=== PATIENT | female | born 1950 | race African-American/Black ===

== ENCOUNTER 2020-07-17 18:22 | Inpatient (IN) | payer MEDICARE ==
[~2020-07-17] VITALS: Ht 167.6 cm; Wt 73.5 kg
--- NOTE | 2020-07-17 18:51 | NUR ---
RN NOTES RECEIVED PT VIA GURNEY BROUGHT BY OD GRINDER OPERATOR FROM [facility]. REPORT GIVEN BY DORIAN/RN VIA PHONE. PT AWAKE, A/O X3, TOLERATING RA,WITH NO ACUTE RESPIRATORY DISTRESS. PT DENIES PAIN OR DISCOMFORT AT THIS TIME. VS TAKEN AND RECORDED. CONRABAND TAKEN AND KEPT BELONGINGS IN THE SAFE. PT DENIES ANY ALLERGIES TO MEDICATIONS AND FOOD. PT KEPT COMFORTABLE IN BED. WILL ENDORSE ADMISSION TO NEXT SHIFT NURSE. Addendum: 07/17/20 at [address] DAY RN Dr. Barnhart made aware of the admission and with orders.
[2020-07-17 18:57] VITALS: BP 118/77
[2020-07-17] MEDS ORDERED: ACETAMINOPHEN 325 MG TABLET PO PRN (19:00)
[2020-07-17] MEDS ORDERED: BLOOD SUGAR DIAGNOSTIC 1 EACH STRIP IN ONE (19:00)
[2020-07-17] MEDS ORDERED: LORAZEPAM 0.5 MG TABLET PO PRN (19:00)
[2020-07-17] MEDS ORDERED: MAGNESIUM HYDROXIDE 30 ML UDC PO PRN (19:00)
[2020-07-17] MEDS ORDERED: MAG HYDROX/AL HYDROX/SIMETH 30 ML UDC PO PRN (19:00)
[2020-07-17 20:20] VITALS: BP 127/70
[2020-07-17] MEDS ORDERED: RISP3TAB14 PO (20:52)
[2020-07-17] MEDS ORDERED: DIVA500T54 PO (20:52)
[2020-07-17] MEDS ORDERED: OLAN10TA3 PO (20:52)
--- NOTE | 2020-07-17 21:00 | NUR ---
GPS RN NOTE RECEIVED PT IN ROOM EATING, PT IS A/O X3, SLIGHTLY GARBLED SPEECH, ISOLATIVE, UNKEPT APPEARANCE, PT DENIES SI/HI, DENIES FEELINGS OF HOPELESSNESS OR DEPRESSION, PT DENIES ANY MEDICAL HISTORY SHE STATED "I JUST HAVE PSYCHIATRIC HISTORY", COOPERATIVE. PT STATES SHE HEARS VOICES BUT THEY JUST SING TO HER, ITS MOSTLY LIKE HEARING MUSIC PER PT WORDS, SKIN ASSESSMENT WAS DONE, SKIN IS INTACT JUST VERY DRY. PT IS ON A 5150 DUE TO GD, PT WAS UNABLE TO RECOLLECT WHAT DAY AND YEAR IT WAS, SHE HAS NOT BEEN TAKING ANTIPSYCHOTICS THAT LAST 10-15 DAYS AND WAS FOUND IN frents LOITERING AND SETTING UP CAMP PER HOLD. PT DENIES HAVING ANY FAMILY TO NOTIFY, WILL CONTINUE TO MONITOR Q15 MIN FOR SAFETY AND BEHAVIOR.
[2020-07-18] MEDS: CLONIDINE HCL 0.1 MG TABLET PO SCH ×3 (05:00→21:00)
--- NOTE | 2020-07-18 05:49 | NUR ---
GPS RN NOTE: REFUSED MED PT REFUSED SCHEDULED CLONODINE HCL 0.1 MG AND REFUSED TO LET ME CHECK VITALS, PT STATED "I DONT WANT TO, PLEASE GET OUT". WILL PASS IT ON AND CONTINUE TO MONITOR Q15MIN FOR SAFETY AND BEHAVIOR.
[2020-07-18 07:19] LABS: CHOLESTEROL 147 mg/dL (<200); HDL CHOLESTEROL 51 mg/dL (40-60); LDL 85 mg/dL (0-99); TRIGLYCERIDES 36 mg/dL (30-150)
[2020-07-18 07:23] LABS: ALANINE AMINOTRANSFERASE 29 U/L (12-78); ALBUMIN 2.8 g/dL (3.4-5.0); ALKALINE PHOSPHATASE 40 U/L (46-116); ASPARTATE AMINOTRANSFERASE 25 U/L (15-37); BILIRUBIN,TOTAL 0.2 mg/dL (0.2-1.0); CALCIUM, SERUM 8.8 mg/dL (8.5-10.1); CARBON DIOXIDE 26 mmol/L (21-32); CHLORIDE 107 mmol/L (98-107); CREATININE 0.8 mg/dL (0.6-1.3); GLUCOSE 97 mg/dL (74-106); POTASSIUM 4.5 mmol/L (3.5-5.1); SODIUM SERUM 141 mmol/L (136-145); TOTAL PROTEIN, SERUM 7.3 g/dL (6.4-8.2); UREA NITROGEN, BLOOD 23 mg/dL (7-18)
[2020-07-18 08:00] VITALS: BP 116/73
[2020-07-18] MEDS: NICOTINE PATCH (14MG) 14 MG PATCH.TD24 TD SCH (08:46)
--- NOTE | 2020-07-18 09:00 | NUR ---
RN NOTE- PT ALERT CALM INTERACTIVE DENYING AH AT PRESENT THOUGH STATES AT TIMES 'I HEAR THINGS' BLUNTED AFFECT, ASKING FOR ICE CREAM AND SNACKS A BIT SLOW TO RESPOND AT TIMES. MED COMPLIANT NO BEHAVIORAL ISSUES
--- NOTE | 2020-07-18 10:20 | NUR ---
INITIAL DISCHARGE PLAN: Pt is homeless and due to her current mental and cognitive state pt needs SNF placement. SW will help form a safe and proper discharge in collaboration with .
--- NOTE | 2020-07-18 13:00 | NUR ---
RN NOTE- ALERT ORIENTED PERSON PLACE TIME. A BIT CONFUSED PO INTAKE FAIR DENIES SI HI AH VH FLAT AFFECT DIRECTABLE
[2020-07-18] MEDS: risperiDONE 1 MG TABLET PO SCH ×2 (13:48→21:00)
[2020-07-18] MEDS: BENZTROPINE MESYLATE (1 MG) 1 MG TABLET PO SCH ×2 (13:48→21:00)
--- NOTE | 2020-07-18 13:49 | NUR ---
GROUP THERAPY: SW encouraged pt to attend group therapy, pt was asleep and not easily roused by verbal cues.
[2020-07-18 16:00] VITALS: BP 106/54
[2020-07-18 20:06] VITALS: BP 126/58
--- NOTE | 2020-07-18 21:16 | NUR ---
NURSES NOTES: PATIENT REFUSD HER NIGHT MEDS ON SCHEDULE. RISPERDAL, CLONIDINE AND COGENTIN TABLES. PER PATIENT " I DON'T TAKE IT AT NIGHT, NO THANK YOU." INSURANCE PROFESSIONAL EXPLAINED THAT SHE TOOK HER MORNING MEDS AND THAT IT IS JUST RIGHT SHE COMPLY WITH NIGHT MEDS WELL. PATIENT STILL REFUSED. BENEFITS AND RISKS EXPLAINED. WILL INFORM DAY SHIFT NURSE. WILL RELAY TO MD.
[2020-07-19] MEDS: CLONIDINE HCL 0.1 MG TABLET PO SCH ×3 (05:00→20:48)
--- NOTE | 2020-07-19 06:14 | NUR ---
NURSES NOTES: PATIENT HAS A SCHEDULED MEDICATION OF CLONIDINE BP RECHECKED HOWEVER PATIENT REFUSED TO TKA E THE MEDICATION. MOLECULAR GENETIC PATHOLOGIST EXPLAINED RISKS AND BENEFITS OF THE SAID MEDICATION. WILL CONTINUE TO MONITOR.
[2020-07-19 08:00] VITALS: BP 143/88
--- NOTE | 2020-07-19 08:40 | NUR ---
WITH ENCOURAGEMENT TOOK MORNING MEDS.
[2020-07-19] MEDS: BENZTROPINE MESYLATE (1 MG) 1 MG TABLET PO SCH ×2 (08:53→20:47)
[2020-07-19] MEDS: risperiDONE 1 MG TABLET PO SCH ×2 (08:54→20:47)
[2020-07-19] MEDS: NICOTINE PATCH (14MG) 14 MG PATCH.TD24 TD SCH (08:54)
--- NOTE | 2020-07-19 13:24 | NUR ---
GIVEN MOM C/CONSTIPATION X 3 DAYS. Addendum: 07/19/20 at 1411 by KODAK ARMENDARIZ RN ABOVE NOTE ON INCORRECT PT.
[2020-07-19 16:00] VITALS: BP 128/50
--- NOTE | 2020-07-19 18:31 | NUR ---
COOPERATIVE,COMPLIANT AND PLEASANT.
[2020-07-19 20:05] VITALS: BP 136/90
[2020-07-20] MEDS: CLONIDINE HCL 0.1 MG TABLET PO SCH ×3 (05:00→20:59)
--- NOTE | 2020-07-20 05:05 | NUR ---
NURSES NOTES: REFUSAL MEDICATION PATIENT HAS A SCHEDULED MEDICATION OF CLONIDINE , PATIENT REFUSED TO TAKE E THE MEDICATION. ENCOURAGED X3 , EXPLAINED RISKS AND BENEFITS OF THE SAID MEDICATION. WILL CONTINUE TO MONITOR.
--- NOTE | 2020-07-20 06:48 | NUR ---
GPS RN NOTES: PT. RESTING IN HER ROOM, CALM NOTED AT THIS TIME . NO S/S OF DISTRESS NOTED . PT. CALM COOPERTIVE,NO CHANGE OF CONDITION NOTED ,AND NO BEHAVIOR PROBLEMS NOTED, ALL CARE NEEDS MET ANTICIPATED. WILL CONTINUE TO MONITOR FOR SAFETY BEHAVIOR, AND ENDORSE TO AM SHIFT FOR CONTINUITY OF CARE.
[2020-07-20 08:00] VITALS: BP 121/76
[2020-07-20] MEDS: BENZTROPINE MESYLATE (1 MG) 1 MG TABLET PO SCH ×2 (08:19→20:59)
[2020-07-20] MEDS: risperiDONE 1 MG TABLET PO SCH ×2 (08:19→21:00)
[2020-07-20] MEDS: NICOTINE PATCH (14MG) 14 MG PATCH.TD24 TD SCH (08:24)
--- NOTE | 2020-07-20 12:45 | NUR ---
RN-CO: PATIENT REFUSED CATAPRES , BP IS 111/69. SHE STATED " I DON'T NEED IT."
[2020-07-20 16:00] VITALS: BP 126/56
[2020-07-20 20:37] VITALS: BP 133/83
[2020-07-21] MEDS: CLONIDINE HCL 0.1 MG TABLET PO SCH ×3 (05:00→21:20)
--- NOTE | 2020-07-21 05:09 | NUR ---
Pt refused med catapress @0500. BP 109/58. Pt states, " my BP is ok, i don't need it". Charge nurse aware.
[2020-07-21 08:00] VITALS: BP 106/71
[2020-07-21] MEDS: NICOTINE PATCH (14MG) 14 MG PATCH.TD24 TD SCH (08:45)
[2020-07-21] MEDS: risperiDONE 1 MG TABLET PO SCH ×2 (08:45→21:20)
[2020-07-21] MEDS: BENZTROPINE MESYLATE (1 MG) 1 MG TABLET PO SCH ×2 (08:45→21:20)
[2020-07-21 16:00] VITALS: BP 106/75
[2020-07-21 19:36] VITALS: BP 125/79
[2020-07-21] MEDS: TEMAZEPAM 7.5 MG CAPSULE PO PRN (21:20)
[2020-07-22] MEDS: CLONIDINE HCL 0.1 MG TABLET PO SCH ×3 (06:45→21:00)
[2020-07-22 08:16] VITALS: BP 131/94
[2020-07-22] MEDS: risperiDONE 1 MG TABLET PO SCH ×2 (08:18→21:38)
[2020-07-22] MEDS: NICOTINE PATCH (14MG) 14 MG PATCH.TD24 TD SCH (08:20)
[2020-07-22] MEDS: BENZTROPINE MESYLATE (1 MG) 1 MG TABLET PO SCH ×2 (08:20→21:37)
--- NOTE | 2020-07-22 13:32 | NUR ---
COORDINATION OF CARE: DEJON faxed patient's referral packet to [facility] ([phone]) attention to Assistant Store Director Glenny for review and possible placement.
[2020-07-22 16:00] VITALS: BP 101/63
[2020-07-22 19:32] VITALS: BP 114/71
--- NOTE | 2020-07-22 21:41 | NUR ---
GPS RN NOTES: 2100 CLONIDINE 0.1MG 1TAB NOT ADMINISTERED D/T DECREASED BLOOD PRESSURE.
[2020-07-23] MEDS: CLONIDINE HCL 0.1 MG TABLET PO SCH ×3 (05:00→21:25)
--- NOTE | 2020-07-23 06:32 | NUR ---
GPS RN CLOSING NOTES: PT SLEEPING COMFORTABLY IN BED. MED COMPLIANT THIS SHIFT. SLEPT FOR 7 HR. NO BEHAVIORAL ISSUES THIS SHIFT. NO S/S OF DISTRESS AT THIS TIME. RESPIRATION EVEN AND UNLABORED WITH EQUAL RISE AND FALL OF THE CHEST ON ROOM AIR. ALL PATIENT CARE NEEDS MET ANTICIPATED. WILL CONTINUE TO MONITOR AND ENDORSE TO AM SHIFT.
[2020-07-23 08:00] VITALS: BP 109/70
[2020-07-23] MEDS: BENZTROPINE MESYLATE (1 MG) 1 MG TABLET PO SCH ×2 (08:21→21:24)
[2020-07-23] MEDS: NICOTINE PATCH (14MG) 14 MG PATCH.TD24 TD SCH (08:22)
[2020-07-23] MEDS ORDERED: risperiDONE 1 MG TABLET PO SCH (09:00)
[2020-07-23] MEDS: risperiDONE 1 MG TABLET PO SCH ×2 (12:20→21:24)
[2020-07-23 16:00] VITALS: BP 113/59
[2020-07-23 20:11] VITALS: BP 117/75
[2020-07-24] MEDS: CLONIDINE HCL 0.1 MG TABLET PO SCH ×3 (05:48→21:05)
[2020-07-24 08:00] VITALS: BP 110/64
[2020-07-24] MEDS: risperiDONE 1 MG TABLET PO SCH ×3 (08:17→21:04)
[2020-07-24] MEDS: BENZTROPINE MESYLATE (1 MG) 1 MG TABLET PO SCH ×2 (08:17→21:04)
[2020-07-24] MEDS: NICOTINE PATCH (14MG) 14 MG PATCH.TD24 TD SCH (08:44)
[2020-07-24 16:00] VITALS: BP 139/82
[2020-07-24 19:39] VITALS: BP 148/80
[2020-07-25] MEDS: TEMAZEPAM 7.5 MG CAPSULE PO PRN (00:56)
--- NOTE | 2020-07-25 00:56 | NUR ---
GPS-RN NOTE: INSOMNIA PATIENT C/O INABILITY TO SLEEP. ADMINISTERED RESTORIL 7.5MG PO ORDERED. WILL CONTINUE TO MONITOR.
[2020-07-25] MEDS: CLONIDINE HCL 0.1 MG TABLET PO SCH ×3 (05:45→21:34)
[2020-07-25 08:00] VITALS: BP 130/79
[2020-07-25] MEDS: BENZTROPINE MESYLATE (1 MG) 1 MG TABLET PO SCH ×2 (08:50→21:34)
[2020-07-25] MEDS: NICOTINE PATCH (14MG) 14 MG PATCH.TD24 TD SCH (08:50)
[2020-07-25] MEDS: risperiDONE 1 MG TABLET PO SCH ×3 (08:50→21:34)
[2020-07-25 16:00] VITALS: BP 149/83
[2020-07-25 19:52] VITALS: BP 137/86
[2020-07-26] MEDS: CLONIDINE HCL 0.1 MG TABLET PO SCH ×3 (05:38→20:47)
--- NOTE | 2020-07-26 06:39 | NUR ---
GPS RN CLOSING NOTES: PT AWAKE, A/O X3, LAYING ON BED. NO BEHAVIORAL ISSUES THIS SHIFT. MED COMPLIANT. SLEPT 8HR THIS SHIFT. NO S/S OF DISTRESS. RESPIRATION EVEN AND UNLABORED WITH EQUAL RISE AND FALL OF THE SHIFT ON ROOM AIR. ALL PT CARE NEEDS MET ANTICIPATED. WILL CONTINUE TO MONITOR AND ENDORSE TO AM SHIFT.
[2020-07-26] MEDS: NICOTINE PATCH (14MG) 14 MG PATCH.TD24 TD SCH (07:50)
[2020-07-26] MEDS: risperiDONE 1 MG TABLET PO SCH ×3 (07:52→21:02)
[2020-07-26] MEDS: BENZTROPINE MESYLATE (1 MG) 1 MG TABLET PO SCH ×2 (07:52→20:47)
[2020-07-26 08:00] VITALS: BP 110/66
[2020-07-26 16:00] VITALS: BP 111/70
[2020-07-26 20:39] VITALS: BP 142/102
[2020-07-27] MEDS: CLONIDINE HCL 0.1 MG TABLET PO SCH ×3 (04:57→21:41)
[2020-07-27] MEDS: NICOTINE PATCH (14MG) 14 MG PATCH.TD24 TD SCH (07:51)
[2020-07-27] MEDS: BENZTROPINE MESYLATE (1 MG) 1 MG TABLET PO SCH ×2 (07:51→21:42)
[2020-07-27] MEDS: risperiDONE 1 MG TABLET PO SCH ×3 (07:51→21:42)
[2020-07-27 08:00] VITALS: BP 119/77
[2020-07-27 16:00] VITALS: BP 124/74
[2020-07-27 20:04] VITALS: BP 133/78
--- NOTE | 2020-07-27 21:44 | NUR ---
Pt c/o indigestion. Maalox 30 ml po prn given as ordered. Will continue to monitor.
--- NOTE | 2020-07-27 22:46 | NUR ---
Post 1 hour Maalox effective. Indigestion relieved. Will continue to monitor.
[2020-07-28 08:00] VITALS: BP 154/90
[2020-07-28] MEDS: risperiDONE 1 MG TABLET PO SCH ×3 (08:29→21:51)
[2020-07-28] MEDS: BENZTROPINE MESYLATE (1 MG) 1 MG TABLET PO SCH ×2 (08:29→20:33)
[2020-07-28] MEDS: NICOTINE PATCH (14MG) 14 MG PATCH.TD24 TD SCH (08:29)
[2020-07-28] MEDS: CLONIDINE HCL 0.1 MG TABLET PO SCH ×2 (13:00→20:32)
[2020-07-28 16:00] VITALS: BP 129/89
[2020-07-28 20:29] VITALS: BP 135/85
[2020-07-29] MEDS: CLONIDINE HCL 0.1 MG TABLET PO SCH ×2 (05:00→13:00)
[2020-07-29 08:00] VITALS: BP 106/71
[2020-07-29] MEDS: NICOTINE PATCH (14MG) 14 MG PATCH.TD24 TD SCH (10:19)
[2020-07-29] MEDS: risperiDONE 1 MG TABLET PO SCH ×2 (10:19→14:11)
[2020-07-29] MEDS: BENZTROPINE MESYLATE (1 MG) 1 MG TABLET PO SCH (10:19)
--- NOTE | 2020-07-29 13:38 | NUR ---
DISCHARGE NOTE: Pt will be discharged at 4:00pm via AM [facility] ([facility]) [address] [address] [address] P: [phone]. Pt has no family/ friends to notify. Pts mood is euthymic with congruent affect. Pt denied visual/auditory hallucinations. Pt is alert and oriented x2 and is ambulatory and appears appropriately dressed. Pt will follow up with Psychiatrist: Dr. Alexandria Barnhart [address] [place] [address] [address], [place] [address] and Fire Prevention Captain: Dr Singh Address: [address] [place] [address] [address], [place] [address] . Pt was provided with homeless resources. Pt was unable to sign homeless waiver and choice of vendors due to cognitive impairment. The multidisciplinary exit care form was done, printed, signed, and given to the patient.
[2020-07-29 16:00] VITALS: BP 108/61
--- NOTE | 2020-07-29 18:34 | NUR ---
making plans for dc,deniess/i and h/i.covid test negative.report called to jenifer at facility.
[2020-07-29 20:15] VITALS: BP 113/61
--- NOTE | 2020-07-29 20:30 | NUR ---
GPS RN NOTE: PT. D/C AT 2029 BY 3 EMT VIA [facility] IN STABLE CONDITION NO ACUTE DISTRESS, NO PAIN, NO SOB
== END 2020-07-29 20:41 | disposition home or self-care (01) | DRG 885 ==
LOC: GPS 18:22
PROVIDERS: ADMIT Psychiatry & Neurology Psychosomatic Medicine; ATTEND Student in an Organized Health Care Education/Training Program
DX: F20.9 Schizophrenia, unspecified (principal); F01.50 Vascular dementia, unspecified severity, without behavioral disturbance, psychotic disturbance, mood disturbance, and anxiety; E43 Unspecified severe protein-calorie malnutrition; F29 Unspecified psychosis not due to a substance or known physiological condition; F41.9 Anxiety disorder, unspecified; Z73.6 Limitation of activities due to disability; R27.8 Other lack of coordination; F32.9 Major depressive disorder, single episode, unspecified; Z91.81 History of falling; E88.09 Other disorders of plasma-protein metabolism, not elsewhere classified
CPT/HCPCS: 36415; 80053-TC; 80061-TC; 82962-TC; 87081-TC

== ENCOUNTER 2024-02-05 19:27 | Inpatient (IN) | payer MEDICARE, OTHER ==
[~2024-02-05] VITALS: Ht 167.6 cm; Wt 71.7 kg
[2024-02-05 21:40] VITALS: BP 143/69; TEMP 98.4; O2SAT 100
[2024-02-05] MEDS ORDERED: MAG HYDROX/AL HYDROX/SIMETH 30 ML UDC PO PRN (22:00)
[2024-02-05 22:26] VITALS: BP 143/69; TEMP 98.4; O2SAT 100
[2024-02-05] MEDS: ZOLPIDEM TARTRATE 5 MG TABLET PO PRN (22:34)
[2024-02-05] MEDS: BLOOD SUGAR DIAGNOSTIC 1 EACH STRIP IN ONE (22:34)
[2024-02-05] MEDS: LORAZEPAM 0.5 MG TABLET PO PRN (23:55)
[2024-02-06] MEDS ORDERED: BENZ0.5T43 PO (00:34)
[2024-02-06] MEDS ORDERED: AMLO-213 MT (00:34)
[2024-02-06] MEDS ORDERED: OXCA300T15 PO (00:34)
[2024-02-06] MEDS ORDERED: QUET100T PO (00:34)
[2024-02-06] MEDS ORDERED: CARV25TA2 PO (00:34)
[2024-02-06] MEDS ORDERED: ATOR10TA PO (00:34)
[2024-02-06] MEDS: MAGNESIUM HYDROXIDE 30 ML UDC PO PRN (02:48)
[2024-02-06 08:00] VITALS: BP 119/95; TEMP 97.9; O2SAT 99
[2024-02-06 09:24] LABS: ALANINE AMINOTRANSFERASE 23 U/L (12-78); ALBUMIN 3.6 g/dL (3.4-5.0); ALKALINE PHOSPHATASE 93 U/L (46-116); ASPARTATE AMINOTRANSFERASE 24 U/L (15-37); BILIRUBIN,TOTAL 0.3 mg/dL (0.2-1.0); CALCIUM, SERUM 9.1 mg/dL (8.5-10.1); CARBON DIOXIDE 26 mmol/L (21-32); CHLORIDE 104 mmol/L (98-107); CREATININE 0.9 mg/dL (0.6-1.3); GLUCOSE 104 mg/dL (74-106); POTASSIUM 4.3 mmol/L (3.5-5.1); SODIUM SERUM 139 mmol/L (136-145); TOTAL PROTEIN, SERUM 9.6 g/dL (6.4-8.2); UREA NITROGEN, BLOOD 19 mg/dL (7-18)
[2024-02-06] MEDS: risperiDONE 1 MG TABLET PO SCH (11:49)
[2024-02-06 15:36] LABS: CHOLESTEROL 174 mg/dL (<200); HDL CHOLESTEROL 58 mg/dL (40-60); TRIGLYCERIDES 69 mg/dL (30-150)
[2024-02-06 15:54] LABS: LDL 93 mg/dL (0-99)
[2024-02-06 16:00] VITALS: BP 119/90; TEMP 97.9; O2SAT 98
[2024-02-06] MEDS: CARBAMAZEPINE 200 MG TABLET PO SCH (16:25)
[2024-02-06] MEDS: CARVEDILOL 12.5 MG TABLET PO SCH (20:14)
[2024-02-06 20:38] VITALS: BP 131/62; TEMP 98; O2SAT 99
[2024-02-06] MEDS: ATORVASTATIN 10 MG TABLET PO SCH (21:25)
[2024-02-07 08:00] VITALS: BP 162/91; TEMP 98.2; O2SAT 96
[2024-02-07] MEDS: BENZTROPINE MESYLATE (1 MG) 1 MG TABLET PO SCH (08:18)
[2024-02-07] MEDS: AMLODIPINE BESYLATE 10 MG TABLET PO SCH (08:18)
[2024-02-07 16:00] VITALS: BP 132/73; TEMP 98.2; O2SAT 97
[2024-02-07 20:43] VITALS: BP 122/84; TEMP 97.6; O2SAT 100
[2024-02-08 08:00] VITALS: BP 137/94; TEMP 98; O2SAT 96
[2024-02-08] MEDS: risperiDONE 1 MG TABLET PO SCH (12:13)
[2024-02-08 16:00] VITALS: BP 135/63; TEMP 97.9; O2SAT 100
[2024-02-08] MEDS: LORAZEPAM 0.5 MG TABLET PO PRN (19:42)
[2024-02-08 20:26] VITALS: BP 134/88; TEMP 98.3; O2SAT 100
[2024-02-09 08:00] VITALS: BP 135/87; TEMP 97.8; O2SAT 99
[2024-02-09 16:00] VITALS: BP 121/79; TEMP 98; O2SAT 100
[2024-02-09 20:00] VITALS: BP 126/68; TEMP 98.4; O2SAT 100
[2024-02-10 08:00] VITALS: BP 128/100; TEMP 98; O2SAT 97
[2024-02-10] MEDS: ACETAMINOPHEN 325 MG TABLET PO PRN (15:46)
[2024-02-10 16:00] VITALS: BP 112/93; TEMP 97.5; O2SAT 98
[2024-02-10 20:00] VITALS: BP 131/99; TEMP 98.4; O2SAT 99
[2024-02-11 08:00] VITALS: BP 112/77; TEMP 98.4; O2SAT 100
[2024-02-11 16:00] VITALS: BP 100/70; TEMP 98.1; O2SAT 98
[2024-02-11 20:00] VITALS: BP 118/73; TEMP 98.6; O2SAT 97
[2024-02-12 08:00] VITALS: BP 147/96; TEMP 97.8; O2SAT 100
[2024-02-12 16:00] VITALS: BP 114/60; TEMP 97.8; O2SAT 100
[2024-02-12 20:35] VITALS: BP 128/83; TEMP 97.9; O2SAT 97
[2024-02-13 08:00] VITALS: BP 110/71; TEMP 98.6; O2SAT 100
[2024-02-13 16:00] VITALS: BP 107/78; TEMP 98.7; O2SAT 100
[2024-02-13] MEDS: risperiDONE 1 MG TABLET PO SCH (16:52)
[2024-02-13 20:59] VITALS: BP 105/71; TEMP 98.6; O2SAT 100
[2024-02-14 07:58] LABS: CALCIUM, SERUM 8.8 mg/dL (8.5-10.1); CREATININE 0.7 mg/dL (0.6-1.3); POTASSIUM 4.5 mmol/L (3.5-5.1)
[2024-02-14 08:00] VITALS: BP 109/69; TEMP 98.6; O2SAT 99
[2024-02-14 16:00] VITALS: BP 115/90; TEMP 97.7; O2SAT 100
[2024-02-14 21:17] VITALS: BP 109/68; TEMP 97.9; O2SAT 99
[2024-02-15 08:00] VITALS: BP 138/90; TEMP 98.7; O2SAT 98
[2024-02-15 16:00] VITALS: BP 121/88; TEMP 97.5; O2SAT 100
[2024-02-15 20:51] VITALS: BP 136/84; TEMP 98; O2SAT 100
[2024-02-16 08:00] VITALS: BP 137/91; TEMP 98.6; O2SAT 96
[2024-02-16] MEDS: risperiDONE 1 MG TABLET PO SCH (08:49)
[2024-02-16 16:35] VITALS: BP 104/70; TEMP 98.4; O2SAT 97
[2024-02-16 20:00] VITALS: BP 124/70; TEMP 98.5; O2SAT 100
[2024-02-17 08:25] VITALS: BP 126/81; TEMP 98.6; O2SAT 99
[2024-02-17] MEDS: diphenhydrAMINE HCL ELIX 25 MG/10 ML UDC PO SCH (09:34)
[2024-02-17] MEDS: HALOPERIDOL 5 MG TABLET PO SCH (09:34)
[2024-02-17 16:00] VITALS: BP 129/98; TEMP 97.9; O2SAT 98
[2024-02-17 20:00] VITALS: BP 132/72; TEMP 98.1; O2SAT 98
[2024-02-18 08:00] VITALS: BP 104/80; TEMP 98; O2SAT 100
[2024-02-18 16:00] VITALS: BP 139/58; TEMP 98; O2SAT 98
[2024-02-18 20:00] VITALS: BP 132/76; TEMP 98.2; O2SAT 99
[2024-02-19 08:00] VITALS: BP 131/88; TEMP 98; O2SAT 99
[2024-02-19 16:00] VITALS: BP 122/82; TEMP 98; O2SAT 100
[2024-02-19 20:00] VITALS: BP 122/93; TEMP 98; O2SAT 100
[2024-02-20 08:00] VITALS: BP 130/84; TEMP 97.8; O2SAT 97
[2024-02-20 16:00] VITALS: BP 112/74; TEMP 98.6; O2SAT 99
[2024-02-20 21:10] VITALS: BP 148/88; TEMP 98.2; O2SAT 98
[2024-02-21 08:00] VITALS: BP 130/73; TEMP 98.1; O2SAT 98
[2024-02-21 08:37] VITALS: BP 130/73
== END 2024-02-21 13:45 | disposition hospice, home (50) | DRG 885 ==
LOC: GPS 21:20
PROVIDERS: ADMIT Psychiatry & Neurology Psychiatry; ATTEND Student in an Organized Health Care Education/Training Program
DX: F25.0 Schizoaffective disorder, bipolar type (principal); F02.82 Dementia in other diseases classified elsewhere, unspecified severity, with psychotic disturbance; I10 Essential (primary) hypertension; G20.A1 Parkinson's disease without dyskinesia, without mention of fluctuations; E78.5 Hyperlipidemia, unspecified; E86.0 Dehydration; Z20.822 Contact with and (suspected) exposure to COVID-19
CPT/HCPCS: 36415; 80048-TC; 80053-TC; 80061-TC; 80156-TC; 82962-TC; 84443-TC; 87081-TC; 97112-TC; 97116-TC; 97530-TC; Q0163